=== PATIENT | female | born 1975 | race Hispanic/Latino ===

== ENCOUNTER 2017-12-03 08:19 | Emergency (ER) | payer OTHER ==
[~2017-12-03] VITALS: Ht 165.1 cm; Wt 67.1 kg
[2017-12-03 10:26] VITALS: BP 141/85
== END 2017-12-03 10:10 | disposition home or self-care (01) ==
LOC: FSED 08:19
DX: R07.89 Other chest pain (principal); M94.0 Chondrocostal junction syndrome [Tietze]; R11.0 Nausea; I10 Essential (primary) hypertension; E78.5 Hyperlipidemia, unspecified
CPT/HCPCS: 71046; 80053; 80307; 82553; 84484; 85025; 93005; 99283